=== PATIENT | male | born 1960 | race Caucasian/White ===

== ENCOUNTER → 2018-10-13 | Outpatient (CLI) | payer BC ==
--- NOTE | 2018-10-13 16:15 | Diagnostic Imaging Report ---
INDICATION: Upper back pain. COMPARISON: None. FINDINGS: Frontal and lateral views of the thoracic spine were obtained. Visualization of the upper thoracic spine is limited on the lateral projection. Alignment and vertebral heights are maintained. There is no fracture or destructive process. There are no large paraspinal masses. Mild degenerative disease is noted in the thoracic spine. Limited views of the lungs are clear. IMPRESSION: 1. No acute fracture or dislocation of the thoracic spine. 2. Mild multilevel degenerative changes. Dictated by: Dictated on workstation # [id number]
--- NOTE | 2018-10-13 16:27 | Diagnostic Imaging Report ---
INDICATION: Neck pain. COMPARISON: None available. TECHNIQUE: Three views of the cervical spine were obtained. FINDINGS: Normal alignment of the cervical spine. Specifically, no spondylolisthesis. No fracture. Minimal degenerative endplate spurring without significant intervertebral height loss. No advanced hypertrophic facet disease. No prevertebral soft tissue swelling. IMPRESSION: Mild degenerative disc disease in the cervical spine. Dictated by: Dictated on workstation # [id number]
== END ==
LOC: RAD 15:36
DX: M50.30 Other cervical disc degeneration, unspecified cervical region (principal); M46.04 Spinal enthesopathy, thoracic region; M47.814 Spondylosis without myelopathy or radiculopathy, thoracic region
CPT/HCPCS: 72040; 72070

== ENCOUNTER → 2018-12-18 | Outpatient (CLI) | payer BC ==
--- NOTE | 2018-12-18 18:36 | Diagnostic Imaging Report ---
PROCEDURE: CT neck soft tissue with contrast. TECHNIQUE: Multiple contiguous axial images were obtained through the neck after the administration of contrast. Auto Exposure Controls were utilized during the CT exam to meet ALARA standards for radiation dose reduction. INDICATION: Lump on posterior side of the neck for approximately six weeks which has been growing in size. COMPARISON STUDIES: None. FINDINGS: CT scanning of the neck was obtained with contrast. At the site of the BB marker, no masses or inflammatory changes are identified. The parotid glands, submandibular glands, and thyroid gland appear normal. The airway is clear. No abnormal adenopathy is present. There is mild arteriosclerosis. Lung apices are clear. The C3-C4 level demonstrates uncovertebral joint hypertrophy with mild narrowing of the left neuroforamina. C5-C6 level demonstrates osteophytic ridging with ltvv-hn-osywcgbu central stenosis. IMPRESSION: 1. No masses are identified. The area around the BB appears normal. 2. Spondylosis is present within the cervical spine. Dictated by: Dictated on workstation # [id number]
== END ==
LOC: RAD 17:40
DX: M47.812 Spondylosis without myelopathy or radiculopathy, cervical region (principal)
CPT/HCPCS: 70491

== ENCOUNTER 2021-09-29 05:36 | Outpatient (CLI) | payer BC ==
[~2021-09-29] VITALS: Ht 170.1 cm; Wt 88.0 kg
[2021-10-05] MEDS ORDERED: LEVO100C4 PO (15:38)
[2021-10-05] MEDS ORDERED: ATOR40TA70 PO (15:38)
[2021-10-05] MEDS ORDERED: DAPA10TA PO (15:38)
[2021-10-05] MEDS ORDERED: PRAM1TAB5 PO (15:38)
[2021-10-05] MEDS ORDERED: FURO40TA4 PO (15:38)
[2021-10-05] MEDS ORDERED: TOPI100T11 PO (15:38)
[2021-10-05] MEDS ORDERED: POTA10CA43 PO (15:38)
[2021-10-05] MEDS ORDERED: METF-397 PO (15:38)
[2021-10-05] MEDS ORDERED: ICOS1CAP PO (15:38)
[2021-10-05] MEDS ORDERED: GABA300C PO (15:38)
[2021-10-05] MEDS ORDERED: GLIP5TAB13 PO (15:38)
[2021-10-05] MEDS ORDERED: TMSL.4C PO (15:38)
[2021-10-05] MEDS ORDERED: TEMA15CA PO (15:38)
[2021-10-05] MEDS ORDERED: INSU100V37 SQ (15:38)
[2021-10-05] MEDS ORDERED: METO50TA7 PO (15:38)
[2021-10-05] MEDS ORDERED: SERT-413 PO (15:38)
[2021-10-05] MEDS ORDERED: ALLO300T2 PO (15:38)
[2021-10-05] MEDS ORDERED: FENO160T12 PO (15:38)
[2021-10-05] MEDS ORDERED: DIAZ5TAB49 PO (15:38)
[2021-10-05] MEDS ORDERED: HYDR-3820 PO (15:38)
[2021-10-05] MEDS ORDERED: SUMA100T3 PO (15:38)
[2021-10-05] MEDS ORDERED: HYDR25TA4 PO (15:38)
[2021-10-05] MEDS ORDERED: PIOG30TA71 PO (15:38)
== END 2021-10-02 10:02 | disposition home or self-care (01) ==
LOC: PREOP 05:36
PROVIDERS: ATTEND Urology
DX: Z01.818 Encounter for other preprocedural examination (principal)

== ENCOUNTER 2021-10-06 06:06 | Day surgery (SDC) | payer BC ==
[~2021-10-06] VITALS: Ht 170.1 cm; Wt 81.2 kg
[2021-10-06] VITALS (12 sets, daily range): BP systolic 92–144; BP diastolic 57–96
[~2021-10-06 06:06] MED LIST: ALLO300T2 PO; ATOR40TA70 PO; DAPA10TA PO; DIAZ5TAB49 PO; FENO160T12 PO; FURO40TA4 PO; GABA300C PO; GLIP5TAB13 PO; HYDR-3820 PO; HYDR25TA4 PO; ICOS1CAP PO; INSU100V37 SQ; LEVO100C4 PO; METF-397 PO; METO50TA7 PO; PIOG30TA71 PO; POTA10CA43 PO; PRAM1TAB5 PO; SERT-413 PO; SUMA100T3 PO; TEMA15CA PO; TMSL.4C PO; TOPI100T11 PO
[2021-10-06] MEDS ORDERED: LACTATED RINGERS 1,000 ML IV PRN (06:30)
[2021-10-06] MEDS ORDERED: ceFAZolin INJECTION 1,000 MG VIAL IV ONE (06:30)
--- NOTE | 2021-10-06 06:54 | Progress Note-Pre Operative ---
Pre-Operative Progress Note H&P Reviewed The H&P was reviewed, patient examined and no changes noted. Date Seen by Provider: October 06, 2021 Time Seen by Provider: 06:54 Date H&P Reviewed: October 06, 2021 Time H&P Reviewed: 06:54 Pre-Operative Diagnosis: PHIALVIN THOMAS MD October 06, 2021 06:54
--- NOTE | 2021-10-06 06:56 | Progress Note-Post Operative ---
Post-Operative Progess Note Surgeon (s)/Bar Roller (s) Surgeon ALVIN COYLE MD Bar Roller: NONE Pre-Operative Diagnosis PHIMOSIS Post-Operative Diagnosis SAME Procedure & Operative Findings Date of Procedure 10/06/21 Procedure Performed/Findings CIRCUMCISION Anesthesia Type GENERAL Estimated Blood Loss Estimated blood loss (mL): NEGLIGIBLE Specimens/Packing Specimens Removed NONE TO PATH Packing: NONE ALVIN COYLE MD October 06, 2021 06:56
[2021-10-06] MEDS ORDERED: fentaNYL INJ 100 MCG/2 ML AMP ONE (06:57)
[2021-10-06] MEDS ORDERED: proPOfol 200 MG/20 ML (DIPRIVAN) VIAL IV ONE (06:57)
[2021-10-06] MEDS ORDERED: SEVOFLURANE (ULTANE) 15 ML INHAL SOLN ONE ×2 (06:57→07:56)
[2021-10-06] MEDS ORDERED: MIDAZOLAM 2 MG/2 ML (VERSED) VIAL ONE (06:57)
[2021-10-06] MEDS ORDERED: ONDANSETRON 4 MG/2 ML (SDV) Z0FRAN ONE (06:57)
[2021-10-06] MEDS ORDERED: LIDOCAINE PF 2% 5 ML (XYLOCAINE) VIAL ONE (06:57)
--- NOTE | 2021-10-06 06:59 | Discharge Inst-Urology ---
Discharge Inst-Urology Reconcile Patient Problems Problems Reviewed?: Yes Final Diagnosis PHIMOSIS Patient Instructions/Follow Up Plan/Assessment/Instructions Please make appointment to been seen in office in 2 weeks. Rest till then Ice to circ area in RR and at home for 6hours and then PRN Neosporin+pain ointment to circ area tid for 5-7 days Use home pain medicine prn Keep bowels soft and moving Tomorrow, start showers, no bath Increase oral fluids for 48 hours and then as needed. Diet as tolerated. If questions or concerns contact your physician Or seek help at emergency department. ALVIN COYLE MD October 06, 2021 06:59
[2021-10-06] MEDS ORDERED: NEOSPORIN + PAIN RELIEF CREAM 15 GM ONE (07:27)
[2021-10-06] MEDS: NEOSPORIN + PAIN RELIEF CREAM 15 GM TOP SCH ×2 (07:32→07:41)
[2021-10-06] MEDS ORDERED: NEOSPORIN + PAIN RELIEF CREAM 15 GM TOP SCH (07:45)
[2021-10-06] MEDS ORDERED: CEPH500T PO (08:02)
--- NOTE | 2021-10-06 08:03 | Anesthesia-General Post-Op ---
General Patient Condition Mental Status/LOC: Same as Preop Cardiovascular: Satisfactory Nausea/Vomiting: Absent Respiratory: Satisfactory Pain: Controlled Complications: Absent Post Op Complications Complications None Follow Up Care/Instructions Patient Instructions None needed. Anesthesia/Patient Condition Patient Condition Patient is doing well, no complaints, stable vital signs, no apparent adverse anesthesia problems. No complications reported per nursing. MARITO RODRIGUEZ CRNA October 06, 2021 08:02
[2021-10-06] MEDS ORDERED: morphine INJ 10 MG/ML 1ML (SYR OR VIAL) IVP ONE (08:15)
[2021-10-06] MEDS ORDERED: MEPERIDINE (DEMEROL) INJ 50 MG/ML IVP ONE (08:15)
[2021-10-06] MEDS ORDERED: ONDANSETRON 4 MG/2 ML (SDV) Z0FRAN IVP PRN (08:15)
[2021-10-06] MEDS ORDERED: ACETAMINOPHEN 500 MG TAB (TYLENOL) PO ONE (09:45)
--- NOTE | 2021-10-06 11:29 | OPERATIVE REPORT ---
DATE OF SERVICE: 10/06/2021 PREOPERATIVE DIAGNOSIS: Phimosis. POSTOPERATIVE DIAGNOSIS: Phimosis. OPERATION PERFORMED: Circumcision. SURGEON: Ernst Coyle MD. ANESTHESIA: General. COMPLICATIONS: None. DESCRIPTION OF PROCEDURE: Under satisfactory general anesthesia, the patient in supine position, genitalia were prepped and draped in the usual sterile fashion. There was significant phimosis, unable to retract the foreskin. First, I made an incision in the foreskin at the level of the shipman glandis. Then, I made a dorsal slit to be able to retract the foreskin. There was a lot of smegma, it was cleaned and removed completely with Betadine. A circular incision was made in the mucosa proximal to the shipman glandis. The excess foreskin was sharply excised. Bleeders were cauterized as the resection was proceeding. Hemostasis was complete. The mucosa and the skin were approximated first in the four-quadrant area and then with interrupted sutures of 4-0 chromic. Neosporin plus pain ointment was applied. The patient tolerated the procedure and anesthesia well and was sent to recovery room in a stable condition. Instructions were given to the family and . Job ID: [id number] DocumentID: [id number] Dictated Date: 10/06/2021 07:58:03 Creasing Machine Operator Date: 10/06/2021 11:28:15 Dictated By: ERNST COYLE MD
== END 2021-10-06 10:03 | disposition home or self-care (01) ==
LOC: SDC 06:06
PROVIDERS: ATTEND Urology
DX: N47.1 Phimosis (principal); E11.40 Type 2 diabetes mellitus with diabetic neuropathy, unspecified; N40.0 Benign prostatic hyperplasia without lower urinary tract symptoms; I10 Essential (primary) hypertension; Z79.4 Long term (current) use of insulin; F17.210 Nicotine dependence, cigarettes, uncomplicated; Z89.021 Acquired absence of right finger(s); Z79.84 Long term (current) use of oral hypoglycemic drugs; Z79.899 Other long term (current) drug therapy
CPT/HCPCS: 82947; 87081

== ENCOUNTER → 2022-08-23 | Outpatient (CLI) | payer BC ==
[~2022-08-23] MED LIST changes: +CEPH500T PO; -POTA10CA43 PO; +POTA10CA44 PO
== END ==
LOC: WOUNDCARE 10:27
PROVIDERS: ATTEND Family Medicine
DX: I96 Gangrene, not elsewhere classified (principal); L97.122 Non-pressure chronic ulcer of left thigh with fat layer exposed; L84 Corns and callosities; T87.89 Other complications of amputation stump; E11.621 Type 2 diabetes mellitus with foot ulcer; E11.65 Type 2 diabetes mellitus with hyperglycemia; E11.40 Type 2 diabetes mellitus with diabetic neuropathy, unspecified
CPT/HCPCS: 11042; 85652; 86141; 87070; 87205; A6197; G0463; L4360; 36415

== ENCOUNTER → 2022-08-30 | Outpatient (CLI) | payer BC ==
--- NOTE | 2022-08-30 18:35 | Diagnostic Imaging Report ---
INDICATION: Possible osteomyelitis of left great toe. AP, oblique, and lateral views of the left foot are obtained and compared with 11/01/2012. Patient has had previous amputation of the 1st digit at the level of the distal aspect of the proximal phalanx. There is chronic-appearing irregularity of the distal aspect of the 1st proximal phalanx but no definite erosive bony lesion. There are diffuse degenerative changes throughout the interphalangeal joints. There is no fracture. IMPRESSION: Status post amputation of 1st digit at the level of the distal aspect of the proximal phalanx. Chronic irregularity at this site is noted with no definite acute finding. Dictated by: Dictated on workstation # [id number]
== END ==
LOC: WOUNDCARE 14:22
PROVIDERS: ATTEND Family Medicine
DX: L97.522 Non-pressure chronic ulcer of other part of left foot with fat layer exposed (principal); L84 Corns and callosities; T87.89 Other complications of amputation stump; E11.621 Type 2 diabetes mellitus with foot ulcer; E11.65 Type 2 diabetes mellitus with hyperglycemia; E11.40 Type 2 diabetes mellitus with diabetic neuropathy, unspecified; A49.01 Methicillin susceptible Staphylococcus aureus infection, unspecified site; E11.52 Type 2 diabetes mellitus with diabetic peripheral angiopathy with gangrene
CPT/HCPCS: 11042; 73630; G0463

== ENCOUNTER → 2022-09-06 | Outpatient (CLI) | payer BC | LOC: WOUNDCARE 12:56 | PROVIDERS: ATTEND Family Medicine | DX: L97.522 Non-pressure chronic ulcer of other part of left foot with fat layer exposed (principal); L84 Corns and callosities; T87.89 Other complications of amputation stump; E11.621 Type 2 diabetes mellitus with foot ulcer; E11.65 Type 2 diabetes mellitus with hyperglycemia; E11.40 Type 2 diabetes mellitus with diabetic neuropathy, unspecified; A49.02 Methicillin resistant Staphylococcus aureus infection, unspecified site | CPT/HCPCS: 11042; G0463 ==

== ENCOUNTER → 2022-09-13 | Outpatient (CLI) | payer BC | LOC: WOUNDCARE 12:56 | PROVIDERS: ATTEND Family Medicine | DX: T87.89 Other complications of amputation stump (principal); L84 Corns and callosities; L97.522 Non-pressure chronic ulcer of other part of left foot with fat layer exposed; E11.621 Type 2 diabetes mellitus with foot ulcer; E11.65 Type 2 diabetes mellitus with hyperglycemia; E11.40 Type 2 diabetes mellitus with diabetic neuropathy, unspecified | CPT/HCPCS: 11042; A6207; A6209; G0463 ==

== ENCOUNTER → 2022-09-15 | Outpatient (CLI) | payer BC | LOC: WOUNDCARE 13:28 | PROVIDERS: ATTEND Family Medicine | DX: L97.522 Non-pressure chronic ulcer of other part of left foot with fat layer exposed (principal); T87.89 Other complications of amputation stump; L84 Corns and callosities; E11.621 Type 2 diabetes mellitus with foot ulcer; E11.65 Type 2 diabetes mellitus with hyperglycemia; E11.40 Type 2 diabetes mellitus with diabetic neuropathy, unspecified | CPT/HCPCS: 29445; A6209; G0463 ==

== ENCOUNTER → 2022-09-20 | Outpatient (CLI) | payer BC | LOC: WOUNDCARE 12:54 | PROVIDERS: ATTEND Family Medicine | DX: L97.522 Non-pressure chronic ulcer of other part of left foot with fat layer exposed (principal); L84 Corns and callosities; T87.89 Other complications of amputation stump; E11.621 Type 2 diabetes mellitus with foot ulcer; E11.65 Type 2 diabetes mellitus with hyperglycemia; E11.40 Type 2 diabetes mellitus with diabetic neuropathy, unspecified | CPT/HCPCS: 11042; A6209; G0463 ==

== ENCOUNTER → 2022-09-27 | Outpatient (CLI) | payer BC | LOC: WOUNDCARE 10:07 | PROVIDERS: ATTEND Family Medicine | DX: E11.621 Type 2 diabetes mellitus with foot ulcer (principal); L97.522 Non-pressure chronic ulcer of other part of left foot with fat layer exposed; E11.65 Type 2 diabetes mellitus with hyperglycemia; E11.40 Type 2 diabetes mellitus with diabetic neuropathy, unspecified; L84 Corns and callosities; T87.89 Other complications of amputation stump; I96 Gangrene, not elsewhere classified | CPT/HCPCS: 11042; A6209; A6234; G0463 ==

== ENCOUNTER → 2022-10-04 | Outpatient (CLI) | payer BC | LOC: WOUNDCARE 12:53 | PROVIDERS: ATTEND Family Medicine | DX: L97.522 Non-pressure chronic ulcer of other part of left foot with fat layer exposed (principal); L84 Corns and callosities; T87.89 Other complications of amputation stump; E11.621 Type 2 diabetes mellitus with foot ulcer; E11.65 Type 2 diabetes mellitus with hyperglycemia; E11.40 Type 2 diabetes mellitus with diabetic neuropathy, unspecified | CPT/HCPCS: 11042; A6021; A6209; G0463 ==

== ENCOUNTER → 2022-10-12 | Outpatient (CLI) | payer BC | LOC: WOUNDCARE 12:56 | PROVIDERS: ATTEND Family Medicine | DX: E11.621 Type 2 diabetes mellitus with foot ulcer (principal); L97.522 Non-pressure chronic ulcer of other part of left foot with fat layer exposed; L84 Corns and callosities; T87.89 Other complications of amputation stump; E11.65 Type 2 diabetes mellitus with hyperglycemia; E11.40 Type 2 diabetes mellitus with diabetic neuropathy, unspecified; E11.52 Type 2 diabetes mellitus with diabetic peripheral angiopathy with gangrene | CPT/HCPCS: 11042; A6021; A6209; G0463 ==

== ENCOUNTER → 2022-10-19 | Outpatient (CLI) | payer BC ==
[2022-10-19 13:52] LABS: BASOPHILS % (AUTO) 1 % (0-10); EOSINOPHILS # (AUTO) 0.1 10^3/uL (0.0-0.3); EOSINOPHILS % (AUTO) 1 % (0-10); HEMATOCRIT 48 % (40-54); HEMOGLOBIN 17.5 g/dL (13.3-17.7); LYMPHOCYTES # (AUTO) 1.7 10^3/uL (1.0-4.0); LYMPHOCYTES % (AUTO) 21 % (12-44); MEAN CORPUSCULAR HEMOGLOBIN 30 pg (25-34); MEAN CORPUSCULAR HGB CONC 37 g/dL (32-36); MEAN CORPUSCULAR VOLUME 81 fL (80-99); MEAN PLATELET VOLUME 10.3 fL (9.0-12.2); MONOCYTES # (AUTO) 0.6 10^3/uL (0.0-1.0); MONOCYTES % (AUTO) 7 % (0-12); NEUTROPHILS # (AUTO) 5.9 10^3/uL (1.8-7.8); NEUTROPHILS % (AUTO) 70 % (42-75); PLATELET COUNT 224 10^3/uL (130-400); WHITE BLOOD COUNT 8.3 10^3/uL (4.3-11.0)
[2022-10-19 13:59] LABS: ALBUMIN 4.2 GM/DL (3.2-4.5)
[2022-10-19 14:00] LABS: POTASSIUM 3.6 MMOL/L (3.6-5.0)
[2022-10-19 14:01] LABS: CALCIUM 10.7 MG/DL (8.5-10.1)
[2022-10-19 14:02] LABS: TOTAL PROTEIN 7.3 GM/DL (6.4-8.2)
[2022-10-19 14:04] LABS: BILIRUBIN,TOTAL 0.4 MG/DL (0.1-1.0)
[2022-10-19 14:06] LABS: CREATININE SERUM 0.95 MG/DL (0.60-1.30)
== END ==
LOC: WOUNDCARE 13:06
PROVIDERS: ATTEND Family Medicine
DX: L97.522 Non-pressure chronic ulcer of other part of left foot with fat layer exposed (principal); T87.89 Other complications of amputation stump; E11.621 Type 2 diabetes mellitus with foot ulcer; E11.65 Type 2 diabetes mellitus with hyperglycemia; E11.40 Type 2 diabetes mellitus with diabetic neuropathy, unspecified; L84 Corns and callosities
CPT/HCPCS: 11042; 80053; 83036; 85025; G0463; 36415

== ENCOUNTER → 2022-10-26 | Outpatient (CLI) | payer BC | LOC: WOUNDCARE 13:10 | PROVIDERS: ATTEND Family Medicine | DX: L97.522 Non-pressure chronic ulcer of other part of left foot with fat layer exposed (principal); L84 Corns and callosities; T87.89 Other complications of amputation stump; E11.621 Type 2 diabetes mellitus with foot ulcer; E11.65 Type 2 diabetes mellitus with hyperglycemia; E11.40 Type 2 diabetes mellitus with diabetic neuropathy, unspecified | CPT/HCPCS: 11042; G0463 ==

== ENCOUNTER → 2022-11-02 | Outpatient (CLI) | payer BC | LOC: WOUNDCARE 12:58 | PROVIDERS: ATTEND Family Medicine | DX: L97.522 Non-pressure chronic ulcer of other part of left foot with fat layer exposed (principal); L84 Corns and callosities; T87.89 Other complications of amputation stump; E11.621 Type 2 diabetes mellitus with foot ulcer; E11.65 Type 2 diabetes mellitus with hyperglycemia; E11.40 Type 2 diabetes mellitus with diabetic neuropathy, unspecified | CPT/HCPCS: 11042; G0463 ==

== ENCOUNTER → 2022-11-16 | Outpatient (CLI) | payer BC | LOC: WOUNDCARE 13:10 | PROVIDERS: ATTEND Family Medicine | DX: E11.65 Type 2 diabetes mellitus with hyperglycemia (principal); E11.40 Type 2 diabetes mellitus with diabetic neuropathy, unspecified; E11.621 Type 2 diabetes mellitus with foot ulcer; L97.522 Non-pressure chronic ulcer of other part of left foot with fat layer exposed; L84 Corns and callosities; T87.89 Other complications of amputation stump | CPT/HCPCS: 99212 ==

== ENCOUNTER → 2022-11-19 | Outpatient (CLI) | payer BC ==
[~2022-11-19] VITALS: Ht 170 cm; Wt 79.0 kg
[~2022-11-19] MED LIST changes: +CATHETER FLUSH 10 ML SYR IVP PRN; +REGADENOSON 0.4 MG/5 ML SYR (LEXISCAN) IV ONE
[2022-11-19 08:07] VITALS: BP 124/73
--- NOTE | 2022-11-20 11:50 | Cardiology Stress Test Report ---
Stress Test Report Type of NM Stress Test: Test Type: LEXISCAN 0.4MG/5ML Date of Procedure/Referring: Date of Procedure: Nov 19, 2022 PCP Jax Murray MD Admitting Physician Admitting Physician: Attending Physician: Jax Murray MD Indications: I10 Baseline Blood Pressure: Blood Pressure Systolic: 124 Blood Pressure Diastolic: 73 Summary & Conclusion: Summary: The patient was brought to the stress lab after informed consent was taken. Stress test was performed according to the Lexiscan protocol. Please review Dr Vaughn's report. 10.74 mCi of Myoview were given for rest imaging and 32.1 mCi of Myoview given for stress imaging. Transient ischemic dilatation score 1.07, EF 68 percent. Normal wall motion. Normal myocardial perfusion imaging during rest and stress. Conclusion: Normal LV function with no wall motion abnormalities. Normal myocardial perfusion imaging during rest and stress. Joan HERNANDEZ MD Nov 20, 2022 11:50
== END ==
LOC: CARD 06:52
PROVIDERS: ATTEND Family Medicine Sports Medicine
DX: I10 Essential (primary) hypertension (principal)
CPT/HCPCS: 78452; 93017; A9502

== ENCOUNTER → 2022-11-23 | Outpatient (CLI) | payer BC ==
[~2022-11-23] MED LIST changes: -CATHETER FLUSH 10 ML SYR IVP PRN; -REGADENOSON 0.4 MG/5 ML SYR (LEXISCAN) IV ONE
== END ==
LOC: WOUNDCARE 12:46
PROVIDERS: ATTEND Family Medicine
DX: E11.621 Type 2 diabetes mellitus with foot ulcer (principal); E11.65 Type 2 diabetes mellitus with hyperglycemia; E11.40 Type 2 diabetes mellitus with diabetic neuropathy, unspecified; L97.522 Non-pressure chronic ulcer of other part of left foot with fat layer exposed; T87.89 Other complications of amputation stump; L84 Corns and callosities; E11.52 Type 2 diabetes mellitus with diabetic peripheral angiopathy with gangrene
CPT/HCPCS: 11042; G0463

== ENCOUNTER 2022-11-26 05:30 | Outpatient (CLI) | payer BC ==
[~2022-11-26] VITALS: Ht 170.2 cm; Wt 79.0 kg
[2022-12-02] MEDS ORDERED: LISI1TAB48 PO (09:02)
[2022-12-06] MEDS ORDERED: CEPH500C PO (11:33)
[2022-12-06] MEDS ORDERED: ACHD5005 PO (11:33)
== END 2022-12-02 09:23 | disposition home or self-care (01) ==
LOC: PREOP 05:30
PROVIDERS: ATTEND Podiatrist Foot & Ankle Surgery
DX: Z01.818 Encounter for other preprocedural examination (principal)

== ENCOUNTER 2022-12-06 07:55 | Day surgery (SDC) | payer BC ==
[2022-12-06] VITALS (11 sets, daily range): BP systolic 94–121; BP diastolic 58–75
[~2022-12-06] VITALS: Ht 170.2 cm; Wt 79.0 kg
[~2022-12-06 07:55] MED LIST changes: +LISI1TAB48 PO; -POTA10CA44 PO; +POTA10CA84 PO
[2022-12-06] MEDS: LACTATED RINGERS 1,000 ML IV PRN ×2 (08:20→11:21)
[2022-12-06] MEDS ORDERED: SEVOFLURANE (ULTANE) 15 ML INHAL SOLN ONE ×2 (08:24→11:27)
[2022-12-06] MEDS ORDERED: ONDANSETRON 4 MG/2 ML (SDV) Z0FRAN ONE (08:24)
[2022-12-06] MEDS ORDERED: proPOfol 200 MG/20 ML (DIPRIVAN) VIAL IV ONE (08:24)
[2022-12-06] MEDS ORDERED: LIDOCAINE PF 2% 5 ML (XYLOCAINE) VIAL ONE (08:24)
[2022-12-06] MEDS ORDERED: fentaNYL INJ 100 MCG/2 ML AMP ONE ×2 (08:25→08:32)
[2022-12-06] MEDS ORDERED: MIDAZOLAM 2 MG/2 ML (VERSED) VIAL ONE (08:25)
[2022-12-06] MEDS ORDERED: fentaNYL INJ 100 MCG/2 ML AMP IVP ONE (08:30)
[2022-12-06] MEDS ORDERED: ceFAZolin INJECTION 1,000 MG ONE (08:32)
[2022-12-06] MEDS ORDERED: NS (IVPB) 50 ML ONE (08:32)
[2022-12-06] MEDS ORDERED: BUPIVACAINE 0.5% 30 ML (SENSORCAINE) VIAL ONE (10:17)
[2022-12-06] MEDS ORDERED: LIDOCAINE 1% INJ 20 ML VIAL ONE (10:17)
--- NOTE | 2022-12-06 10:30 | Progress Note-Pre Operative ---
Pre-Operative Progress Note Date of Available H&P: Dec 06, 2022 Date H&P Reviewed: Dec 06, 2022 Time H&P Reviewed: 10:20 Pre-Operative Diagnosis: Chronic Ulceration, left hallux FLOYD STEELE DPJoan Dec 06, 2022 10:30
[2022-12-06] MEDS ORDERED: CEPH500C PO (11:33)
[2022-12-06] MEDS ORDERED: ACHD5005 PO (11:33)
--- NOTE | 2022-12-06 11:33 | Progress Note-Post Operative ---
Post-Operative Progess Note Surgeon (s)/Drop Wire Hanger (s) Surgeon FLOYD STEELE DPM Drop Wire Hanger: none Pre-Operative Diagnosis Chronic Ulceration, left hallux Post-Operative Diagnosis same Procedure & Operative Findings Date of Procedure 12/06/22 Procedure Performed/Findings partial amputation of the left hallux Anesthesia Type General Estimated Blood Loss Estimated blood loss (mL): Minimal Specimens/Packing Specimens Removed Proximal phalanx, left hallux Packing: none FLOYD STEELE DPM Dec 06, 2022 11:32
[2022-12-06] MEDS ORDERED: HYDROcodone/APAP 5 MG/325 MG (LORTAB) TAB PO PRN (11:45)
[2022-12-06] MEDS ORDERED: LACTATED RINGERS 1,000 ML IV SCH (11:45)
[2022-12-06] MEDS ORDERED: ONDANSETRON 4 MG/2 ML (SDV) Z0FRAN IVP PRN (11:45)
[2022-12-06] MEDS ORDERED: morphine INJ 10 MG/ML 1ML (SYR OR VIAL) IVP ONE (11:45)
--- NOTE | 2022-12-06 13:38 | Physical Therapy Ortho Eval ---
PT Orthopedic Evaluation Type of Surgery Prior Level of Function Current Living Status: Spouse Locomotion (Upon Admit): Independent Established Durable Medical Eq: Crutches Subjective Subjective Patient lying supine in bed with in room upon PT arrival, agreeable to treatment. Rates pain at 0/10 currently. Entry Into Home: Stairs Without Railing Steps Into Home: 1 Steps Accessories: No Railing Motor Control Motor Control: Motor Control WNL Transfer SCALE: Activities may be completed with or without assistive devices. 8-Jqglpdbhlz-oussxop completes the activity by him/herself with no assistance from a helper. 5-Set-up or Clean-up Assistance-helper sets up or cleans up; patient completes activity. [place] assists only prior to or following the activity. 4-Supervision or Touching Assistance-helper provides verbal cues and/or touching/steadying and/or contact guard assistance as patient completes activity. Assistance may be provided throughout the activity or intermittently. 3-Partial/Moderate Assistance-helper does LESS THAN HALF the effort. [place] lifts, holds or supports trunk or limbs, but provides less than half the effort. 2-Substantial/Maximal Assistance-helper does MORE THAN HALF the effort. [place] lifts or holds trunk or limbs and provides more than half the effort. 4-Chmlffehs-rwgtnj does ALL the effort. Patient does none of the effort to complete the activity. Or, the assistance of 2 or more helpers is required for the patient to complete the activity. If activity was not attempted, code reason: 7-Patient Refused. 9-Not Applicable-not attempted and the patient did not perform the activity before the current illness, exacerbation or injury. 10-Not Attempted due to Environmental Limitations-(lack of equipment, weather restraints, etc.). 88-Not Attempted due to Medical Conditions or Safety Concerns. Gait Right Lower Extremity: Right Weight Bearing Status RLE: Full Weight Bearing Left Lower Extremity: Left Weight Bearing Status LLE: Partial Weight Bearing Other Weight Bearing Inst.: Heel contact on the left Gait (QC): 6 Distance: 50' Stairs #of Steps: 1 Walking Assistive Device: Crutches Treatment Rendered Treatment: Gait Train, Step Train Assessment/Goals Goal Time Frame: 1 Visit Safe Ambulation: Yes Plan Treatment Plan: Discharge PT/Family Agrees to Plan: Yes Time Time In: 1310 Time Out: 1325 Total Billed Treatment Time: 15 Billed Treatment Time Visit, EVL TOCCI,LYDIA PT Dec 06, 2022 13:38
--- NOTE | 2022-12-06 18:27 | Diagnostic Imaging Report ---
INDICATION: Left foot pain There are postoperative changes with amputation of the big toe at the base of the proximal phalanx. There is an air bubble in the soft tissues adjacent to the osteotomy. IMPRESSION: Air bubble within the soft tissues of the big toe adjacent to the amputation. Dictated by: Dictated on workstation # [id number]
--- NOTE | 2022-12-06 20:32 | OPERATIVE REPORT ---
DATE OF SERVICE: 12/06/2022 SURGEON: Veronica Steele DPM PREOPERATIVE DIAGNOSIS: Chronic ulceration to the remaining left hallux. POSTOPERATIVE DIAGNOSIS: Chronic ulceration to the remaining left hallux. PROCEDURE: Partial amputation of left hallux. WOUND CLASS: Contaminated. ANESTHESIA: General. HEMOSTASIS: Pneumatic thigh tourniquet at 250 mmHg. INDICATIONS: This 62-year-old male, who presents with a chronic wound to the left great toe. He has already had a partial amputation of the hallux where the distal phalanx was amputated. With the patient's current activity level, he was unable to heal a wound that is at the head of the proximal phalanx of the left hallux. Conservative therapy is met with unsatisfactory results and the patient is agreeable to surgical intervention after risks and complications were discussed at length. No guarantees were extended to the patient and he is willing to proceed. There also appears to be a new lesion developing to the plantar medial aspect of the left first metatarsal head area. No open wound was identified here. DESCRIPTION OF PROCEDURE: The patient was brought back to the operating table and placed in secure supine position. General anesthetic was then induced. Appropriate timeout was performed. Pneumatic thigh tourniquet was placed on the left lower extremity over several layers of padding. The left foot was then prepped and draped in normal sterile manner. The left foot was then elevated, allowed to exsanguinate after which the tourniquet was inflated to 250 mmHg. Attention was then directed to the distal aspect of the left hallux where a fishmouth type incision was created from medial to lateral encircling the chronic ulceration of the left hallux. Utilizing a power sagittal saw, the distal portion of the remaining proximal phalanx and left hallux was resected from a dorsal distal to plantar proximal orientation. This was sent for gross and microscopic evaluation. A swab culture was taken of this area as well for anaerobic, aerobic evaluation. New section of proximal phalanx was then resected from the remaining proximal phalanx with a power sagittal saw again and orientation of dorsal distal to plantar proximal. This is to confirm clear margins of any osteomyelitis. The remaining bone was of normal color, constituted a normal texture as well. No gross signs of bacterial infection. No abscess was identified. Pulse irrigation was then performed after which closure was performed and after second swab, culture was taken. The wound edges approximated very well and simple interrupted stitch was utilized with 4-0 Prolene. Excellent skin apposition was appreciated without excessive skin tension. The tourniquet was released and noting appropriate capillary refill time to all digits of the left foot. Postoperative injection consisted of 10 mL of 0.5% Marcaine injected in a local infusion to the surgical site. Postoperative dressing consisted of Betadine-soaked Adaptic, sterile 4 x 4's, sterile Kerlix, all secured with a Coban wrap. The patient tolerated the anesthesia and procedure well and was transported from the operating room to the recovery room with vital signs stable and vascular status intact to all digits of the left foot. The patient is to keep the dressing dry, clean, and intact. He needs to be partial weightbearing with heel contact only on the left lower extremity. I will see the patient back in the office in 10 days' period of time or sooner if necessary. Job ID: [id number] DocumentID: [id number] Dictated Date: 12/06/2022 11:43:48 Wire Coater Date: 12/06/2022 20:30:00 Dictated By: VERONICA STEELE DPM
== END 2022-12-06 13:30 | disposition home or self-care (01) ==
LOC: SDC 07:55
PROVIDERS: ATTEND Podiatrist Foot & Ankle Surgery
DX: E11.621 Type 2 diabetes mellitus with foot ulcer (principal); L97.529 Non-pressure chronic ulcer of other part of left foot with unspecified severity; M86.9 Osteomyelitis, unspecified; E11.69 Type 2 diabetes mellitus with other specified complication; M86.672 Other chronic osteomyelitis, left ankle and foot; I10 Essential (primary) hypertension; E11.65 Type 2 diabetes mellitus with hyperglycemia; F17.210 Nicotine dependence, cigarettes, uncomplicated; Z79.84 Long term (current) use of oral hypoglycemic drugs; Z79.899 Other long term (current) drug therapy; Z79.4 Long term (current) use of insulin
CPT/HCPCS: 73620; 82947; 87070; 87075; 87077; 87081; 87186; 87205; 88305; 88311

== ENCOUNTER → 2022-12-22 | Outpatient (CLI) | payer BC ==
[~2022-12-22] MED LIST changes: +ACHD5005 PO; +CEPH500C PO
== END ==
LOC: WOUNDCARE 13:09
PROVIDERS: ATTEND Family Medicine
DX: E11.621 Type 2 diabetes mellitus with foot ulcer (principal); E11.65 Type 2 diabetes mellitus with hyperglycemia; E11.40 Type 2 diabetes mellitus with diabetic neuropathy, unspecified; T87.89 Other complications of amputation stump; L84 Corns and callosities; L97.522 Non-pressure chronic ulcer of other part of left foot with fat layer exposed; E11.52 Type 2 diabetes mellitus with diabetic peripheral angiopathy with gangrene
CPT/HCPCS: 99213

== ENCOUNTER → 2022-12-28 | Outpatient (CLI) | payer BC | LOC: WOUNDCARE 13:05 | PROVIDERS: ATTEND Family Medicine | DX: L84 Corns and callosities (principal); T87.89 Other complications of amputation stump; E11.621 Type 2 diabetes mellitus with foot ulcer; E11.65 Type 2 diabetes mellitus with hyperglycemia; E11.40 Type 2 diabetes mellitus with diabetic neuropathy, unspecified; T81.31XA Disruption of external operation (surgical) wound, not elsewhere classified, initial encounter; E11.52 Type 2 diabetes mellitus with diabetic peripheral angiopathy with gangrene; I96 Gangrene, not elsewhere classified | CPT/HCPCS: 11042; G0463 ==

== ENCOUNTER → 2023-01-11 | Outpatient (CLI) | payer BC | LOC: WOUNDCARE 11:00 | PROVIDERS: ATTEND Family Medicine | DX: L84 Corns and callosities (principal); T87.89 Other complications of amputation stump; E11.621 Type 2 diabetes mellitus with foot ulcer; E11.65 Type 2 diabetes mellitus with hyperglycemia; E11.40 Type 2 diabetes mellitus with diabetic neuropathy, unspecified; T81.31XA Disruption of external operation (surgical) wound, not elsewhere classified, initial encounter | CPT/HCPCS: 99212 ==